=== PATIENT | male | born 1950 | race Caucasian/White ===

== ENCOUNTER 2023-10-20 12:44 | Outpatient (CLI) | payer MEDICARE, SELFPAY ==
--- NOTE | 2023-10-20 | ECHO_ITS ---
Patient Info Name: Thomas Bailey Jr Age: 72 years : 1950 Gender: Male Ht: 67 in Wt: 194 lbs BSA: 2.07 m2 HR: 71 bpm BP: 132 / 76 mmHg Technical Quality: Good Exam Date: 10/20/2023 1:08 PM Exam Location: Echo Lab Patient Status: Outpatient Admit Date: 10/20/2023 Staff Ordering Physician: AdamWild MD Web Applications Developer: Badnar Sigala RDCS Attending Provider: JamilWild MD Exam Type: CA echo doppler color flow Study Info Indications - HTN Complete two-dimensional, color flow and Doppler transthoracic echocardiogram is performed. Summary 1. Complete two-dimensional, color flow and Doppler transthoracic echocardiogram is performed. 2. Left ventricular chamber dimension is normal. 3. Left ventricular systolic function is normal, estimated at 65-70%. 4. There is mild concentric increased left ventricular wall thickness. 5. The left ventricular diastolic function is grade I diastolic dysfunction. 6. E/e' 10 is mildly elevated. 7. There is moderate aortic valve sclerosis. 8. There is mild aortic valve stenosis with a peak velocity of 245 cm/s, mean gradient of 14 mmHg, and aortic valve area of 1.6 cm2. 9. There is trace mitral valve regurgitation. 10. There is trace tricuspid valve regurgitation. 11. No pulmonary hypertension, estimated pulmonary arterial systolic pressure is 31 mmHg. Left Ventricle E/e' 10 is mildly elevated. Left ventricular chamber dimension is normal. Left ventricular systolic function is normal, estimated at 65-70%. There is mild concentric increased left ventricular wall thickness. The left ventricular diastolic function is grade I diastolic dysfunction. Right Ventricle Right ventricular systolic function is normal and with normal TAPSE 2.1 cm. Right ventricular chamber dimension is normal. Left Atria Left atrial chamber dimension is normal. Right Atria Right atrial chamber dimension is normal. Aortic Valve The aortic valve is trileaflet. There is moderate aortic valve sclerosis. There is mild aortic valve stenosis with a peak velocity of 245 cm/s, mean gradient of 14 mmHg, and aortic valve area of 1.6 cm2. There is no aortic valve regurgitation. Pulmonic Valve There is no pulmonic regurgitation. Mitral Valve There is no mitral valve stenosis. There is trace mitral valve regurgitation. Tricuspid Valve There is trace tricuspid valve regurgitation. No pulmonary hypertension, estimated pulmonary arterial systolic pressure is 31 mmHg. Pericardium/Pleural There is no pericardial effusion. Inferior Vena Cava Normal inferior vena cava with >50% collapse upon inspiration consistent with normal right atrial pressure, 5 mmHg. Aorta The aortic root size at the sinus of Valsalva is normal. Left Ventricular Outflow Tract Name Value Normal LVOT 2D LVOT Diameter 2.1 cm LVOT Doppler LVOT Peak Gradient 5 mmHg LVOT Mean Gradient 3 mmHg LVOT VTI 25 cm LVOT VTI/AV VTI Ratio 0.5 LVOT Stroke Volume 84 ml LVOT CO 5.8 l/min LVOT CI 2.8 l/min/m2 P
== END 2023-10-20 12:45 | disposition home or self-care (01) ==
LOC: ANHCARD 12:46
PROVIDERS: PCP Internal Medicine; Visit Provider Internal Medicine
DX: I10 Essential (primary) hypertension (principal); I35.1 Nonrheumatic aortic (valve) insufficiency
CPT/HCPCS: 93306

== ENCOUNTER 2024-01-19 07:00 | Outpatient (NON) | payer MEDICARE, SELFPAY | END 2024-01-19 07:01 | disposition home or self-care (01) | LOC: ANHLAB 01-20 07:37 | PROVIDERS: PCP Internal Medicine; Visit Provider Internal Medicine Gastroenterology | DX: Z12.11 Encounter for screening for malignant neoplasm of colon (principal) | CPT/HCPCS: 88305 ==

== ENCOUNTER 2024-01-19 10:31 | Day surgery (SDC) | payer MEDICARE, SELFPAY ==
[2023-12-27 07:46] VITALS: BMI 30.4
--- NOTE | 2024-01-19 06:59 | P.PNAN_ITS ---
Anes - Initial Pre Proc Eval Procedure: Operation Date: 01/19/24 12:45 Proposed Procedures p Diagnostic Colonoscopy - Luis Mccarthy MD Date/Time: 01/19/24 06:59 Surgeon: Luis Mccarthy MD Pre Op Diagnosis: History of Colon Polyps Patient Data Age: 73 Gender: M Height: 17.37 m Weight: 86 kg Allergies Allergy/AdvReac Type Severity Reaction Status Date / Time No Known Allergies Allergy Verified 01/19/24 11:22 Home Medications Medication Instructions Recorded Confirmed Type multivit with minerals-iron 18 1 tablet PO DAILY 01/10/24 01/19/24 History mg-folic ac 400 mcg-vit K 25 mcg tablet (Adults Multivitamin) Patient hx anesthesia problems: none Family hx anesthesia problems: none Results Review: All pre-operative results and documents have been reviewed as part of the pre- operative evaluation. [facility] Social History Social History Years smoked: 20 Smoking status: Former smoker Tobacco type: cigars Alcohol intake: current Drinks per week: 6 Alcohol use details: beer Substance use: former Substance use type: marijuana Other substance usage details: as a young adult Living arrangements: with family Spiritual care concerns: No Anes - Eval Final PreProcedure Day of Procedure 01/19/24 06:59 Patient weight: normal Heart: regular rate and rhythm Lungs: clear to auscultation and normal air movement Airway: Mallampati scale class II Neurological: alert and oriented Last oral intake: >/= 8 hours ASA classification: II Emergent: no Anesthetic plan: proceed Anesthesia type and monitoring: general GIVS and standard monitoring Results Review: All pre-operative results and documents have been reviewed as part of the pre- operative evaluation. Informed Consent: The patient's anesthetic plan and its attendant risks and benefits were discussed with the patient/family/POA. Questions were solicited and answers provided to the satisfaction of the patient/family/POA.
[2024-01-19 11:23] VITALS: BP 150/90; PULSE 73; RESP 18; TEMP 37.2; O2SAT 97
[2024-01-19] MEDS: LACTATED RINGERS 1,000 ML 150 ML IV CONT (11:28)
--- NOTE | 2024-01-19 12:03 | P.HP_ITS ---
History of Present Illness History of Present Illness Consent: Risks, benefits, and alternatives have been discussed and questions answered. Patient agrees to proceed with procedure. Chief complaint: History of Colon Polyps Narrative: Thomas Bailey Jr. is a 73 year old male presents for screening colonoscopy. Patient's current weight appetite and bowel movements are normal. Patient denies abdominal pain. He has had no bleeding. Family history is noncont ributory. Patient reports previous colonoscopy 15 years ago revealed a small polyp.m He was told this was ?nothing to worry about?. This was performed at a different institution and histology not available for review. Review of Systems Review of Systems: All systems reviewed & are unremarkable except as noted in HPI and below PMFSH Social History Social History Years smoked: 20 Smoking status: Former smoker Tobacco type: cigars Alcohol intake: current Drinks per week: 6 Alcohol use details: beer Substance use: former Substance use type: marijuana Other substance usage details: as a young adult Living arrangements: with family Spiritual care concerns: No Meds Home Medications and Allergies Home Medications Medication Instructions Recorded Confirmed Type multivit with minerals-iron 18 1 tablet PO DAILY 01/10/24 01/19/24 History mg-folic ac 400 mcg-vit K 25 mcg tablet (Adults Multivitamin) Allergies Allergy/AdvReac Type Severity Reaction Status Date / Time No Known Allergies Allergy Verified 01/19/24 11:22 Vital Signs Vital Signs - 24 hr 01/19/24 11:23 Temperature 98.9 F Pulse Rate 73 Respiratory Rate 18 Blood Pressure 150/90 H Pulse Oximetry 97 Oxygen Delivery Room Air Exam Narrative: Physical exam reveals patient to be alert. Vital signs stable. HEENT exam is unremarkable. Patient is anicteric. Lungs are clear to auscultation and is without murmur or extra sounds. Abdomen bowel sounds are present soft nontender with no organomegaly. Digital external rectal exam normal. Assessment and Plan Assessment and plan (1) Screen for colon cancer: Code(s): Z12.11 - Encounter for screening for malignant neoplasm of colon Status: Acute Assessment and Plan: Patient presents today for neoplasia screening colonoscopy. He does report a distant history of a small polyp many years ago. Further recommendations may be given after endoscopy
[2024-01-19 13:16] VITALS: BP 155/85; PULSE 64; RESP 16; O2SAT 96
[2024-01-19 13:26] VITALS: BP 129/82; PULSE 65; RESP 18; O2SAT 100
[2024-01-19 13:36] VITALS: BP 163/79; PULSE 70; RESP 18; O2SAT 99
--- NOTE | 2024-01-19 13:48 | WPDANESPN ---
Anes - Prog Note Post-Op Date/Time: 01/19/24 13:48 Cardiovascular status: normal Respiratory status: normal Airway patency: baseline Mental status: baseline Post-Op hydration status: normal Vital Signs: Last Vital Signs Temp 37.2 C 01/19/24 11:23 Pulse 70 01/19/24 13:36 Resp 18 01/19/24 13:36 BP 163/79 H 01/19/24 13:36 Pulse Ox 99 01/19/24 13:36 O2 Del Method Room Air 01/19/24 13:36 Pain Score (VAS): 0 I/O: Intake & Output 01/18/24 01/19/24 01/19/24 23:59 07:59 15:59 Intake Total 650 Balance 650 Post-procedural complaints: none Patient Feedback: Patient satisfied with anesthetic care. Other Findings: Patient vital signs back to baseline. Patient denies nausea and vomiting. Patient's pain under control. Patient OK for discharge.
== END 2024-01-19 13:43 | disposition home or self-care (01) ==
PROVIDERS: PCP Internal Medicine; Visit Provider Internal Medicine Gastroenterology
PROC: 0DJD8ZZ Inspection of Lower Intestinal Tract, Via Natural or Artificial Opening Endoscopic (ICD-10-PCS; CPT 45378; principal; 2024-01-19 12:45)
DX: Z86.0100 Personal history of colon polyps, unspecified (principal); D12.3 Benign neoplasm of transverse colon; K64.8 Other hemorrhoids; Z12.11 Encounter for screening for malignant neoplasm of colon
CPT/HCPCS: 45385

== ENCOUNTER 2024-10-10 14:47 | Outpatient (CLI) | payer MEDICARE, SELFPAY ==
--- NOTE | 2024-10-10 | ECHO_ITS ---
Patient Info Name: Thomas Bailey Age: 73 years : 1950 Gender: Male Ht: 67 in Wt: 190 lbs BSA: 2.04 m2 HR: 65 bpm BP: 161 / 91 mmHg Technical Quality: Good Exam Date: 10/10/2024 3:10 PM Patient Status: O Admit Date: 10/10/2024 Exam Type: CA echo doppler color flow Complete two-dimensional, color flow and Doppler transthoracic echocardiogram is performed. Orthopedic Nurse Practitioner: Edith Bailey Attending Provider: Wild Medina Summary 1. Complete two-dimensional, color flow and Doppler transthoracic echocardiogram is performed. 2. The left ventricle is normal in size and systolic function. The left ventricular ejection fraction is visually estimated to be 60-65%. There are no regional wall motion abnormalities. 3. The right ventricle is normal in size and systolic function. 4. The aortic valve is likely trileaflet and calcified. There is mild aortic stenosis. There is no aortic regurgitation. Left Ventricle The left ventricle is normal in size and systolic function. The left ventricular ejection fraction is visually estimated to be 60-65%. There are no regional wall motion abnormalities. Right Ventricle The right ventricle is normal in size and systolic function. Left Atria The left atrium is normal size. Right Atria The right atrium is normal size. Atrial Septum The atrial septum is normal. Aortic Valve The aortic valve is likely trileaflet and calcified. There is mild aortic stenosis. There is no aortic regurgitation. Pulmonic Valve The pulmonic valve is grossly normal. There is no pulmonic valve regurgitation. Mitral Valve The mitral valve leaflets are sclerotic. There is no mitral stenosis. There is no mitral regurgitation. Tricuspid Valve The tricuspid valve is normal. There is mild tricuspid regurgitation. Pericardium/Pleural Pericardium is normal in appearance with no evidence for significant pericardial effusion. Inferior Vena Cava Normal inferior vena cava with >50% collapse upon inspiration consistent with normal right atrial pressure, 3 mmHg. Aorta The aortic root at the level of the sinus of Valsalva measures 3.1 cm in diameter. Left Ventricular Outflow Tract Name Value Normal LVOT 2D LVOT Diameter 2.0 cm LVOT Doppler LVOT Peak Velocity 112 cm/s LVOT Peak Gradient 4 mmHg LVOT Mean Gradient 2 mmHg LVOT VTI 29 cm LVOT VTI/AV VTI Ratio 0.5 LVOT Stroke Volume 89 ml LVOT CO 4.8 l/min LVOT CI 2.3 l/min/m2 Pulmonic Valve Name Value Normal RVOT Doppler RVOT Peak Velocity 77 cm/s RVOT Peak Gradient 2 mmHg PV Doppler PV Peak Velocity 114 cm/s PV Peak Gradient 5 mmHg Mitral Valve Name Value Normal MV Diastolic Function MV E Peak Velocity 94 cm/s MV A Peak Velocity 81 cm/s MV E/A 1.2 MV Decel Time (PW) 220 ms MV Annular TDI MV E/e' (Septal) 11.6 MV E/e' (Lateral) 8.0 MV E/e' (Average) 9.8 Tricuspid Valve Name Value Normal TV Regurgitation Doppler TR Peak Velocity 319 cm/s TR Peak Gradient 41 mmHg Estimated PAP/RSVP RA Pressure 3 mmHg <=5 PA Systolic Pressure 44 mmHg <36 RV Systolic Pressure 44 mmHg <36 Aortic Valve Name Value Normal AV 2D/MM AV Area (Planimetry) 1.3 cm2 AV Doppler AV Peak Velocity 239 cm/s AV Peak Gradient 22 mmHg AV Mean Gradient 13 mmHg AV VTI 58 cm AV Area (Cont Eq VTI) 1.5 cm2 >=3.0 AV Area (Cont Eq Kareem) 1.4 cm2 AV DI (Kareem) 0.47 AV Regurgitation 2D LVOT Area 3.1 cm2 Ventricles Name Value Normal LV Dimensions 2D/MM IVS Diastolic Thickness (2D) 1.1 cm 0.6-1.0 LVID Diastole (2D) 4.9 cm 4.2-5.8 LVIW Diastolic Thickness (2D) 1.0 cm 0.6-1.0 LVID Systole (2D) 3.0 cm 2.5-4.0 LVOT Diameter 2.0 cm LV Mass (2D Cubed) 194.51 g 88.00-224.00 LV Mass Index (2D Cubed) 95 g/m2 49-115 Relative Wall Thickness (2D) 0.42 <=0.42 LV Fractional Shortening/Ejection Fraction 2D/MM LV Fractional Shortening (2D) 39 % 25-43 LV EF (2D Teichholz) 69 % LV EF (BP MOD) 59 % 52-72 Atria Name Value Normal LA Dimensions LA Volume (4C A-L) 52 ml LA Volume (BP A-L) 51 ml RA Dimensions RA Systolic Major [place] Length (4C) 5.6 cm 2.1-2.7 RA Area (4C) 14.6 cm2 <=18.0 EchoPAC Name Value Normal AutoEF LVCO_BiP_Q (Flzg8AUG) 4.8 l/min LVEF_BiP_Q (Wyzp1RWC) 59 % LVSV_BiP_Q (Pthp6ROX) 75 ml LVVED_BiP_Q (Axmx9HAK) 127 ml LVVES_BiP_Q (Smrk7SLG) 53 ml HR_4Ch_Q (Stbk3SVL) 64 bpm LVCO_4Ch_Q (Aabr5INC) 5.0 l/min LVEF_4Ch_Q (Vrjr0PPF) 59 % LVLd_4Ch_Q (Dvty2IFX) 9.2 cm LVLs_4Ch_Q (Uxhg7UOU) 7.6 cm LVSV_4Ch_Q (Tbdk2CJK) 78 ml LVVED_4Ch_Q (Ikui0FMA) 132 ml LVVES_4Ch_Q (Kefv7HIX) 54 ml HR_2Ch_Q (Fkcq9QPW) 64 bpm LVCO_2Ch_Q (Pagv6THW) 4.6 l/min LVEF_2Ch_Q (Vepu8OJF) 59 % LVLd_2Ch_Q (Djsu2NET) 9.4 cm LVLs_2Ch_Q (Jznz0LBM) 7.7 cm LVSV_2Ch_Q (Axbl0NLD) 72 ml LVVED_2Ch_Q (Fwdy5PGM) 123 ml LVVES_2Ch_Q (Hknb3QTQ) 51 ml Report Signatures
--- OUTSIDE RECORDS SUMMARY | 2024-10-10 14:50 | XMS_ITS | Data Portability ---
Author Organization [place] - [facility] [employer], Main Office Address [address] [place] [address] Assessment Encounter Date Assessment Date Assessment LastModified by Organization Details LastModified Time 03/03/2023 03/03/2023 Continue current therapy blood work to include testosterone 6 month follow-up. [email or web address] Not available 03/05/2023 19:33:54 05/23/2024 05/23/2024 This note is dictated and transcribed by [employer]. Bridge Painter Helper variances may occur. Despite proofreading, typographical errors may occur. Occasional wrong-word or 'dhmuq-c-evwu' substitutions may have occurred due to the inherent limitations of voice recording. Read the chart carefully and recognize, using context, where substitutions have occurred. Not available 05/23/2024 11:28:59 06/21/2024 06/21/2024 This note is dictated and transcribed by [employer]. Bridge Painter Helper variances may occur. Despite proofreading, typographical errors may occur. Occasional wrong-word or 'xemgn-p-rhdo' substitutions may have occurred due to the inherent limitations of voice recording. Read the chart carefully and recognize, using context, where substitutions have occurred. Not available 06/21/2024 13:52:08 07/13/2024 07/13/2024 This note is dictated and transcribed by [employer]. Bridge Painter Helper variances may occur. Despite proofreading, typographical errors may occur. Occasional wrong-word or 'gwacc-z-bxyt' substitutions may have occurred due to the inherent limitations of voice recording. Read the chart carefully and recognize, using context, where substitutions have occurred. Not available 07/13/2024 16:53:21 09/05/2024 09/05/2024 This note is dictated and transcribed by [employer]. Bridge Painter Helper variances may occur. Despite proofreading, typographical errors may occur. Occasional wrong-word or 'ujxvd-u-rjtc' substitutions may have occurred due to the inherent limitations of voice recording. Read the chart carefully and recognize, using context, where substitutions have occurred. Not available 09/05/2024 16:17:15 Plan of Treatment Reminders Order Date Submit Date Provider Last Modified By Organization Details Last Modified Time Details Appointments None recorded. Lab lipid panel, serum 2022 023 [facility] (Lab), [address] [place], [address], 3 12:58:39 TSH, serum or plasma 2022 023 [facility] (Lab), [address] [place], [address], 3 13:53:36 T4, free, serum 2022 023 [facility] (Lab), [address] [place], [address], 13:06:55 T3, free, serum or plasma 2022 023 [facility] (Lab), [address] [place], [address], 3 13:59:11 CBC 2022 023 [facility] (Lab), [address] [place], [address], 3 13:08:26 testosteron e, free + total, serum 2022 023 [facility] (Lab), [address] [place], [address], 3 14:11:37 CMP, serum or plasma 2022 023 [facility] (Lab), [address] [place], [address], 12:57:58 Referral None recorded. Procedures None recorded. Surgeries None recorded. Imaging None recorded. Medication Orders ketoconazol e 2 % topical cream 2024 025 [id number], [address], [place], [address], 16:18:27 Patient TargetsNo targets recorded. Patient InstructionsNo instructions recorded. Reason for Referral None Reported. Results Created Date Observation Date Name Description Value Unit Range Abnormal Flag Note LastModifiedBy Organization Detail LastModifiedTime 03/08/2003/08/2023 COMPR EHENS MARY METAB OLIC PANEL sodium 138 mmol/ L 137-14 5 Not Available [facility] (Lab) [address] [place], [address], 03/08/2023 12:57:58 03/08/2003/08/2023 COMPR EHENS MARY METAB OLIC PANEL potassium 4.2 mmol/ L 3.5-5. 1 Not Available [facility] (Lab) [address] [place], [address], 03/08/2023 12:57:58 03/08/20 23 03/08/2023 COMPR EHENS MARY METAB OLIC PANEL chloride 104 mmol/ L 98-107 Not Available [facility] (Lab) [address] [place], [address], 03/08/2023 12:57:58 03/08/20 23 03/08/2023 COMPR EHENS MARY METAB OLIC PANEL carbon dioxide 28 mmol/ L 22-30 Not Available [facility] (Lab) [address] [place], [address], 03/08/2023 12:57:58 03/08/20 23 03/08/2023 COMPR EHENS MARY METAB OLIC PANEL anion gap 10.2 mmol/ L 14-22 low Not Available [facility] (Lab) [address] [place], [address], 03/08/2023 12:57:58 03/08/20 23 03/08/2023 COMPR EHENS MARY METAB OLIC PANEL glucose 103 mg/dL 70-99 high Not Available [facility] (Lab) [address] [place], [address], 03/08/2023 12:57:58 03/08/20 23 03/08/2023 COMPR EHENS MARY METAB OLIC PANEL BUN 20 mg/dL 8-19 high Not Available [facility] (Lab) [address] [place], [address], 03/08/2023 12:57:58 03/08/20 23 03/08/2023 COMPR EHENS MARY METAB OLIC PANEL creatinine 0.93 mg/dL 0.66-1 .25 Not Available [facility] (Lab) [address] [place], [address], 03/08/2023 12:57:58 03/08/2003/08/2023 COMPR EHENS MARY METAB OLIC PANEL GFR >60 Refer ence Range : [place] ge GFR Healt hy Adult : >60 mL/mi n/1.7 3 m2 Chron ic Kidne y Disea se: 15-60 mL/mi n/1.7 3 m2 Kidne y Failu re: <15/m L/min /1.73 m2 www.n iddk. nih.g ov The MDRD study equat ion has not been valid ated in child allegra <18 years of age; pregn ant women ; the elder ly >85 years of age; or in some racia l or ethni c subgr oups, such as Hispa nics. Outsi de the valid ated sonia eters , estim ated GFR is less accur ate, requi ring clini meg judgm ent on a case- by-ca se basis . Clini meg inter preta tion for other races and ages must be made by the clini angle. The MDRD study equat ion has not been valid ated for the evalu ation of serum creat inine relat ed to nutri moraima l statu s or medic ation usage . For perso ns <18 years of age, a pedia tric GFR calcu lator is avail able on the [facility] websi te: https ://ww w.kid nolvia.o rg/pr ofess ional s/kdo qi/gf r_cal culat or Not Available [facility] (Lab) [address] [place], [address], 03/08/2023 12:57:58 03/08/2003/08/2023 COMPR EHENS MARY METAB OLIC PANEL alkaline phosphatase 66 U/L 38-126 Not Available [facility] (Lab) [address] [place], [address], 03/08/2023 12:57:58 03/08/2003/08/2023 COMPR EHENS MARY METAB OLIC PANEL alanine aminotransfe rase 16 U/L 0-50 Not Available [facility] (Lab) [address] [place], [address], 03/08/2023 12:57:58 03/08/20 23 03/08/2023 COMPR EHENS MARY METAB OLIC PANEL aspartate aminotransfe rase 23 U/L 15-46 Not Available [facility] (Lab) [address] [place], [address], 03/08/2023 12:57:58 03/08/20 23 03/08/2023 COMPR EHENS MARY METAB OLIC PANEL bilirubin, total 0.60 mg/dL 0.20-1 .30 Not Available [facility] (Lab) [address] [place], [address], 03/08/2023 12:57:58 03/08/20 23 03/08/2023 COMPR EHENS MARY METAB OLIC PANEL calcium 9.3 mg/dL 8.4-10 .2 Not Available [facility] (Lab) [address] [place], [address], 03/08/2023 12:57:58 03/08/2003/08/2023 COMPR EHENS MARY METAB OLIC PANEL total protein 7.6 g/dL 6.3-8. 2 Not Available [facility] (Lab) [address] [place], [address], 03/08/2023 12:57:58 03/08/20 23 03/08/2023 COMPR EHENS MARY METAB OLIC PANEL albumin 4.0 g/dL 3.0-4. 4 Not Available [facility] (Lab) [address] [place], [address], 03/08/2023 12:57:58 03/08/20 23 03/08/2023 COMPR EHENS MARY METAB OLIC PANEL globulin 3.6 g/dL 2.6-4. 2 Not Available [facility] (Lab) [address] [place], [address], 03/08/2023 12:57:58 03/08/2003/08/2023 COMPR EHENS MARY METAB OLIC PANEL A/G ratio 1.1 ratio 1.0-2. 0 Not Available [facility] (Lab) [address] [place], [address], 03/08/2023 12:57:58 03/08/2003/08/2023 LIPID PANEL cholesterol 171 mg/dL 140-19 9 NIH SOM NSUS RECOM MENDA TION FOR LENI STERO L: ADULT CHILD LOW RISK: <200 <170 BORDE RLINE : <200- 239 ----- HIGH RISK: >240 >200 Not Available [facility] (Lab) [address] [place], [address], 03/08/2023 12:58:39 03/08/2003/08/2023 LIPID PANEL triglyceride s 214 mg/dL 0-150 high NIH SOM NSUS REPOR T RECOM MENDA TION FOR TRIGL YCERI LEANNE: ADULT CHILD LOW RISK: <150 ----- BODER LINE: 150-1 99 ----- HIGH RISK: >200 ----- Not Available [facility] (Lab) [address] [place], [address], 03/08/2023 12:58:39 03/08/20 23 03/08/2023 LIPID PANEL HDL cholesterol 22 mg/dL 40- low Not Available [facility] (Lab) [address] [place], [address], 03/08/2023 12:58:39 03/08/2003/08/2023 LIPID PANEL LDL cholesterol, calculated 106 mg/dL 0-130 NIH SOM NSUS REPOR T RECOM MENDA TIONS FOR LDL: ADULT CHILD LOW RISK <130 <110 (OPTI MAL LDL) <100 ----- AWA RLINE : 130-1 59 ----- HIGH RISK: >160 >130 A TRIGL YCERI DE RESUL T >400 INVAL IDATE S THE CALCU LATIO N FOR LDL FRACT IONAT ION - THE LDL RESUL T WILL NOT BE REPOR ENA. Not Available [facility] (Lab) [address] [place], [address], 03/08/2023 12:58:39 03/08/2003/08/2023 T4 FREE free T4 0.98 NG/dL 0.78-2 .19 Not Available [facility] (Lab) [address] [place], [address], 03/08/2023 13:06:55 03/08/2003/08/2023 CBC W/O DIFFE WILVER AL white blood cells 5.4 x10'3 /uL 4.2-10 .8 Not Available [facility] (Lab) [address] [place], [address], 03/08/2023 13:08:26 03/08/20 23 03/08/2023 CBC W/O DIFFE RENTI AL red blood cells 4.58 x10'6 /uL 4.10-5 .80 Not Available [facility] (Lab) [address] [place], [address], 03/08/2023 13:08:26 03/08/20 23 03/08/2023 CBC W/O DIFFE RENTI AL hemoglobin 14.7 g/dL 13.2-1 7.0 Not Available [facility] (Lab) [address] [place], [address], 03/08/2023 13:08:26 03/08/20 23 03/08/2023 CBC W/O DIFFE RENTI AL hematocrit 45.2 % 39.3-5 0.0 Not Available [facility] (Lab) [address] [place], [address], 03/08/2023 13:08:26 03/08/20 23 03/08/2023 CBC W/O DIFFE RENTI AL mean red cell volume 98.7 fL 80.0-9 7.0 high Not Available [facility] (Lab) [address] [place], [address], 03/08/2023 13:08:26 03/08/20 23 03/08/2023 CBC W/O DIFFE RENTI AL mean red cell hemoglobin 32.1 pg 27.0-3 3.0 Not Available [facility] (Lab) [address] [place], [address], 03/08/2023 13:08:26 03/08/20 23 03/08/2023 CBC W/O DIFFE RENTI AL mean RBC HGB concentratio n 32.5 g/dL 31.0-3 6.0 Not Available [facility] (Lab) [address] [place], [address], 03/08/2023 13:08:26 03/08/20 23 03/08/2023 CBC W/O DIFFE RENTI AL red cell distribution width 12.8 % 11.8-1 5.5 Not Available [facility] (Lab) [address] [place], [address], 03/08/2023 13:08:26 03/08/20 23 03/08/2023 CBC W/O DIFFE RENTI AL platelets 201 x10'3 /uL 150-40 0 Not Available [facility] (Lab) [address] [place], [address], 03/08/2023 13:08:26 03/08/20 23 03/08/2023 CBC W/O DIFFE RENTI AL mean platelet volume 11.7 fL 9.0-12 .4 Not Available [facility] (Lab) [address] [place], [address], 03/08/2023 13:08:26 03/08/20 23 03/08/2023 TSH thyroid-stim ulating hormone 3.400 uIU/m L 0.465- 4.680 Not Available [facility] (Lab) [address] [place] [address], [address], 03/08/2023 13:53:36 03/08/20 23 03/08/2023 T3 FREE free T3 3.8 pg/mL 2.77-5 .27 Not Available [facility] (Lab) [address] [place], [address], 03/08/2023 13:59:11 03/08/20 23 03/16/2023 TESTO STERO NE, FREE+ TOTAL LC/MS testosterone , total, lc/MS 332.1 NG/dL 264.0- 916.0 This LabCo rp LC/MS -MS metho d is curre ntly certi fied by the CDC Hormo ne Stand ardiz ation Progr am (HoSt ). Adult male refer ence inter tolu is based on a popul ation of healt hy nonob dain males (BMI <30) betwe en 19 and 39 years old. Glen zabala, et.al . JCEM 2017, 102;1 161-1 173. PMID: 76433 103. Not Available [facility] (Lab) [address] [place], [address], 03/16/2023 14:11:37 03/08/20 23 03/16/2023 TESTO STERO NE, FREE+ TOTAL LC/MS testosterone , free 6.64 NG/dL 5.00-2 1.00 Not Available [facility] (Lab) [address] [place], [address], 03/16/2023 14:11:37 03/08/2003/16/2023 TESTO STERO NE, FREE+ TOTAL LC/MS % free testosterone 2.00 % 1.50-4 .20 [facility] [place] [address] [facility] [place] [address] Lab Direc tor: Sonia thorpe MD, Phone : [phone] Not Available [facility] (Lab) [address] [place], [address], 03/16/2023 14:11:37 Result Notes None recorded. Problems Name Problem SNOMED Code Status Onset Date Resolution Date Notes Provider Name and Address Organization Details Recorded Time Gastroesop hageal reflux disease 285748239 Active Not Available [facility] 3 21:51:24 Hand pain 62955253 Active 2013 Not Available [facility] 3 21:51:24 Palpitatio ns 77441776 Active 2017 Not Available [facility] 3 21:51:24 Skin lesion 99770888 Active 2021 Not Available [facility] 3 21:51:24 Fatigue 11946820 Active 2022 Not Available [facility] 3 21:51:24 Pain of toe of right foot 9384528203343 01 Active 2024 Bandar Smith DPM [address] [facility] [address], [place], [address] , Contrib 11:29:27 Ingrowing toenail 515168045 Active 2024 Bandar Smith DPM [address], [place], [address] , Contrib 11:29:47 Onychomyco sis of toenails 802141426 Active 2024 Bandar Smith DPM [address], [place], [address] , Contrib 13:52:13 Problem Notes None recorded. Procedures Surgical History Date Name Laterality Status Provider Name and Address Organization Details Recorded Time 07/14/19 Toenail avulsion completed Bandar Smith DPM [address], [place], [address], Contrib 07/13/2024 16:52:32 05/23/19 Nail Debridement completed Bandar Smith DPM [address], [place], [address], Contrib 05/23/2024 11:28:55 Foot Surgery completed Not Available [facility] 05/27/2022 14:56:01 Imaging Results None recorded. Procedure Notes None recorded. Medical Equipment None Reported. Allergies No known drug allergies Medications Name Sig Start Date Stop Date Status Note LastModified by Organization Details LastModified Time lisinopril 20 mg-hydrochl orothiazide 12.5 mg tablet TAKE 1 TABLET BY MOUTH EVERY DAY 05/23 completed Not Available Not Available Not Available amoxicillin 500 mg tablet TAKE 1 TABLET BY MOUTH THREE TIMES A DAY FOR 7 DAYS 05/23 completed Not Available Not Available Not Available ofloxacin 0.3 % ear drops INSTILL 10 DROPS INTO AFFECTED EAR(S) BY OTIC ROUTE ONCE DAILY 05/23 completed Not Available Not Available Not Available ketoconazol e 2 % topical cream APPLY TO THE AFFECTED AREA(S) ON RIGHT GREAT TOENAIL ONCE DAILY active Not Available Not Available No t Available Glucosamine 07/26 completed Not Available Not Available Not Available [employer] 2017 active Not Available Not Available Not Avai lable Vitals Date Recorded Body temperature Respiratory rate Heart rate Oxygen saturation Oxygen saturation in Arterial blood by Pulse oximetry Systolic And Diastolic Provider Name and Address Organization Details Last Updated DateTime 5 98.7 [degF] 18 /min 70 /min 96 % 96 % 147/100 mm[Hg] Liz Rbui RN [facility] [employer] [facility] 5 10:56:49 Date Recorded Body temperature Respiratory rate Heart rate Oxygen saturation Oxygen saturation in Arterial blood by Pulse oximetry Systolic And Diastolic Provider Name and Address Organization Details Last Updated DateTime 5 98.2 [degF] 16 /min 67 /min 98 % 98 % 154/87 mm[Hg] Kalyn Carlitos [facility] [employer] [facility] 5 12:51:53 Date Recorded Body height Body mass index (BMI) Body weight Provider Name and Address Organization Details Last Updated DateTime 07/13/2024 170.18 cm 31.6 kg/m2 92103.66 g Veronica Sal [facility] [employer] [facility] 07/13/2024 16:32:56 Date Recorded Body height Body mass index (BMI) Body weight Body temperature Heart rate Oxygen saturation Oxygen saturation in Arterial blood by Pulse oximetry Systolic And Diastolic Provider Name and Address Organization Details Last Updated DateTime 5 170.18 cm 31.6 kg/m2 06301.6 6 g 97.9 [degF] 80 /min 97 % 97 % 143/70 mm[Hg] Quan Gibbs [facility] [employer] [facility] 5 15:27:50 Date Recorded Body height Body mass index (BMI) Body weight Body temperature Heart rate Systolic And Diastolic Provider Name and Address Organization Details Last Updated DateTime 3 170.18 cm 31.6 kg/m2 11701.6 6 g 97.6 [degF] 62 /min 122/86 mm[Hg] Kathy Watts Matteo [facility] [employer] [facility] 3 12:00:11 Social History Question Answer Notes LastModified by Organizat ion Details LastModified Time Tobacco Smoking Status Former Smoker Not Available [facility] 05/27/2022 14:55:57 Do You Have An Advance Directive? No [id number] Information not available 05/27/2022 What Is Your Level Of Caffeine Consumption? Moderate MIGRATION.[id number] Information not available 05/27/2022 In The 14 Days Before Symptom Onset, Have You Had Close Contact With A Laboratory-confi rmed COVID-19 While That Case Was Ill? No [id number] Information not available 05/27/2022 In The 14 Days Before Symptom Onset, Have You Had Close Contact With A Person Who Is Under Investigation For COVID-19 While That Person Was Ill? No [id number] Information not available 05/27/2022 What Type Of Diet Are You Following? REGULAR MIGRATION.95504 05743 Information not available 05/27/2022 What Is The Highest Grade Or Level Of School You Have Completed Or The Highest Degree You Have Received? [id number] MIGRATION.59908 [id number] Information not available 05/27/2022 Have There Been Any Changes To Your Family Or Social Situation? No MIGRATION.69313 [id number] Information not available 05/27/2022 What Is The Fluoride Status Of Your Home? Unknown MIGRATION.[id number] [id number] Information not available 05/27/2022 When Did You Quit Smoking? 6-10yearssincelastc igarette MIGRATION.64885 13997 Information not available 05/27/2022 Where Do You Live? SingleLevelHouse MIGRATION.87430 10526 Information not available 05/27/2022 Do You Have A Medical Power Of Folding Machine Setter? No MIGRATION.87767 84543 Information not available 05/27/2022 What Was The Date Of Your Most Recent Tobacco Screening? 03/03/2023 [email or web address] Information not available 03/03/2023 Have You Ever Been Counseled For Unhealthy Alcohol Use? No MIGRATION.68023 85586 Information not available 05/27/2022 Do You Have Any Pets? No MIGRATION.67205 74793 Information not available 05/27/2022 What Is Your Relationship Status? MIGRATION.06801 68176 Information not available 05/27/2022 Do You Have Smoke And Carbon Monoxide Detectors In Your Home? Yes MIGRATION.20508 68115 Information not available 05/27/2022 Are You Passively Exposed To Smoke? Yes MIGRATION.70802 03075 Information not available 05/27/2022 Are There Any Smokers In Your House? Yes MIGRATION.49481 67277 Information not available 05/27/2022 Has Tobacco Cessation Counseling Been Provided? No MIGRATION.03078 17855 Information not available 05/27/2022 Have You Recently Traveled Abroad? No MIGRATION.29031 30318 Information not available 05/27/2022 Do You Have Any Dietary Restrictions? No MIGRATION.95781 83606 Information not available 05/27/2022 Sex: Male Functional Status Question Answer Note LastModified by [employer] Details LastModified Time Do you use any illicit or recreational drugs? No MIGRATION.[id number] 026 Information not available 05/27/2022 Do you or have you ever used any other forms of tobacco or nicotine? No MIGRATION.[id number] 026 Information not available 05/27/2022 What is your level of alcohol consumption? Occasional MIGRATION.[id number] 026 Information not available 05/27/2022 Are you currently employed? No [email or web address] Information not available 09/09/2022 What is your occupation? retired MIGRATION.[id number] 026 Information not available 05/27/2022 What is your exercise level? Moderate MIGRATION.[id number] 026 Information not available 05/27/2022 Mental Status Question Answer Note LastModified by [employer] Details LastModified Time Do you feel stressed (tense, restless, nervous, or anxious, or unable to sleep at night)? [id number] [id number] Information not available 05/27/2022 Family History Relationship Description Onset Age of this Age Resolved Age Notes LastModified by Organization Details LastModified Time Father Alzheimer's disease [id number] Not available 05/27/2022 14:56:02 Father Heart disease [id number] Not available 05/27/2022 14:56:02 Medical History Condition Response NERVE DISEASE N BLINDNESS N RHEUMATIC FEVER N KIDNEY STONES N BLADDER PROBLEMS N MRSA N OTHER # 1 N POLIO N LUNG DISEASE/DISORDER N HISTORY OF DRUG ABUSE N RADIATION / CHEMOTHERAPY N COPD N Other # 2 N BLOOD DISEASES N EAR OR HEARING PROBLEMS N MUMPS N SHINGLES N BOWEL PROBLEMS N DEPRESSION (INCLUDING POST ) N FAILED BACK SYNDROME N STROKE/TIA N ULCERS N BENIGN PROSTATIC HYPERPLASIA N MEASLES N HYPOTENSION N MYOCARDIAL INFARCTION N OBESITY N GERD/NAUSEA N ANEURYSM N URINARY/BLADDER/KIDNEY PROBLEMS N CORONARY ARTERY DISEASE (CAD) N Do you have Advance directive? N ADDICTION CONCERNS N ENDOMETRIOSIS N Impotence N USE OF BLOOD THINNERS N SKIN PROBLEMS N GASTROINTESTINAL DISORDER N PERIPHERAL VASCULAR DISEASE N MUSCLE,JOINT OR BONE PROBLEMS N GASTROINTESTINAL BLEEDING N BLOOD CLOTS N ASTHMA N Abdominal Pain N CATARACTS N ARTERIAL INSUFFICIENCY N ERECTILE DYSFUNCTION N VARICOSITIES N GI PROBLEMS N Low Testosterone N INFERTILITY N AIDS/HIV N CHEMOTHERAPY / RADIATION N LIVER DISEASE N MALE HYPOGONADISM N HYPERTENSION N Deficiency N TOURETTE'S N ANXIETY DISORDER N BLOOD TRANSFUSION N ANEMIA/BLOOD DISORDER N CHRONIC EAR INFECTIONS N TUBERCULOSIS N GLAUCOMA N FOOT PROBLEM N DIVERTICULITIS N CHICKENPOX N SLEEP APNEA N BACK INJECTIONS N ALLERGIES/HAYFEVER N INFECTIOUS DISEASE N HEART ARRHYTHMIA N PROSTATE N ESRD N INSOMNIA N HIGH CHOLESTEROL / HYPERLIPIDEMIA N HYPERTHYROIDISM N EYE PROBLEMS N PVD N EDEMA N CHRONIC PAIN SYNDROME N HYPOTHYROIDISM N CONSTIPATION N CAROTID BLOCKAGE N BACK / NECK PROBLEMS N HAVE YOU BEEN HOSPITALIZED OR SEEN IN [facility] ER IN THE PAST YEAR ? N ATHEROSCLEROSIS N BREAST PROBLEMS N DIALYSIS N POLYCYSTIC OVARIES N ECZEMA N OSTEOPOROSIS N ARTHRITIS N NO SIGNIFICANT PAST MEDICAL HISTORY N APPENDICITIS N DIABETES, TYPE N BAD TEETH N VON WILLIBRAND'S DISEASE N ENT N HEARTBURN / REFLUX N GI N AUTISM SPECTRUM DISORDER (ASD) N POST LAMINECTOMY SYNDROME N HEPATITIS / LIVER DISEASE N GOUT N SLEEP DISORDER N ALZHEIMER'S DISEASE N Brain Problems N HERPES N DEMENTIA N HEADACHES/MIGRAINES N SEIZURES/EPILEPSY N VASCULAR DISEASE N PACEMAKER N DIZZINESS N HEART DISEASE/HEART PROBLEMS N KIDNEY DISEASE N MULTIPLE SCLEROSIS N NEUROPSYCHOLOGICAL N CARDIAC ARRHYTHMIA N CANCER: SPECIFY N ATRIAL FIBRILLATION N Gall Stones N PULMONARY EMBOLISM N AUTOIMMUNE DISEASE N Immunizations Vaccine Type Date Status Note Provider Nam e and Address Organization Details Recorded Time COVID-19, mRNA, LNP-S, PF, 10 mcg/0.2 mL dose, villa-sucrose 07/02/2020 completed Not Available [facility] 023 21:51:24 COVID-19, mRNA, LNP-S, PF, 10 mcg/0.2 mL dose, villa-sucrose 06/10/2020 completed Not Available [facility] 023 21:51:24 Past Encounters Encounter ID Performer Location Encounter Start Date Encounter Closed Date Diagnosis/Indication Diagnosis SNOMED-CT Code Diagnosis ICD10 Code Diagnosis Note [id number] Wild Medina MD [facility] Internal Med [address] [address] 03/06/2022 00:00:00 04/12/2022 22:25:11 [id number] Wild Medina MD [facility] Internal Med [facility] [address] [address] 09/09/2022 10:32:50 09/09/2022 11:43:23 Screening for malignant neoplasm of colon 834915651 Z12.11 Gastroesop hageal reflux disease [id number] K21.9 [id number] Wild Medina MD [facility] Internal Med [facility] [address] [address] 03/03/2023 10:46:54 03/03/2023 12:19:05 Fatigue [id number] R53.83 Screening for cardiovascular system disease [id number] Z13.6 [id number] [facility] [address] [place] [address] 05/23/2024 10:27:23 05/23/2024 11:31:24 Pain of toe of right foot [id number] 35151 M79.674 right great toe secondary to ingrown without infection Ingrowing toenail [id number] L60.0 right great toenail- worse laterally but pain mediallyNa il debrided without incidentRe viewed treatment options in detailPati ent will return in 1 month and we will decide if the patient wants to pursue partial matrixecto my [id number] Bandar Smith DPM [facility] [address] [place] [address] 06/21/2024 12:12:53 06/21/2024 14:08:35 Ingrowing toenail [id number] L60.0 right great toenail- resolved but incurvated worse to the lateralNai l debrided without incidentRe viewed treatment options in detailpati ent will return for total nail matrixecto my Onychomyco sis of toenails [id number] B35.1 right great toenailwil l treat with ketoconazo le [id number] Bandar Smith DPM [facility] [address] [place] [address] 07/13/2024 16:20:19 07/13/2024 17:08:15 Onychomycosis of toenails [id number] B35.1 right great toenailcon sent signed total nail avulsion right great toenailpro cedure performed without incidentWo und care instructio ns reviewed with the patientMon itor for signs of infection if present seek medical attention immediatel ywill treat with ketoconazo le Once nail bed healedfoll ow-up 2 weeks [id number] Bandar Smith DPM [facility] [address] [facility] [address] [place] [address] 09/05/2024 15:18:46 09/07/2024 15:00:19 Onychomycosis of toenails [id number] B35.1 right great toenailTot al nail avulsion healed with new nail returning and normal in natureRx ketoconazo le- apply for 1 monthfollo w-up as needed Health Concerns Section Related Observation LastModified by Organization Detai ls LastModified Time None Recorded Concern Status LastModified by Organization Details LastModified Time None Recorded Advance Directives Directive N: Payers Insurance Date Sequence Insurance Name Policy Number Policy Bowman Covered Member ID Bowman Member ID Guarantor Name 09/02/2024 1 [employer] (MEDICARE REPLACEMENT/ ADVANTAGE - HMO) [id number] Thomas Bailey [id number] Thomas Bailey Notes Date Note Type Note Provider Name and Address Organization Details Recorded Time 03/03/2023 text/html Overall not doin g too bad little bit of fatigue from time to time late afternoon Wild Medina MD [address] [facility] [place], [address], [place], [address], [place] - S Patient [employer] [facility] 03/05/2023 19:34:15 05/23/2024 text/html Patient is a 73-year-old male who presents the office with complaints of ingrown toenail pain to the right great toe he states the medial corner is causing him discomfort. Patient states the left neuro corner is worse but is not problematic currently. Patient states he has had redness and drainage to the nail in the past but denies any recently. Patient denies any other complaints. Bandar Smith DPM [address], [place], [address], [employer] 05/23/2024 11:30:42 06/21/2024 text/html . Patient is a 73-year-old male who returns the office for follow-up on ingrown toenail of the right great toe he states the infection and everything has resolved he states that he continues to have pain and discoloration of the toenail I reviewed treatment options with the patient and due to his onychomycosis and nail incurvation he would like to pursue a total nail avulsion which I agree will help to resolve the onychomycosis and may improve the incurvation of the nail. Patient denies any other complaints. Bandar Smtih DPM [address], [address], [place], [address], [employer] 06/21/2024 13:53:05 07/13/2024 text/html . Patient is a 73-year-old male who returns to office for follow-up on onychomycosis of the right great toenail. Patient is here for total nail avulsion. Patient understands all risks, benefits, complications of planned procedures. Patient denies any other complaints. Bandar Smith DPM [address], [address], [place], [address], [employer] 07/13/2024 16:56:09 09/05/2024 text/html . Patient is a 73-year-old male who returns to the office for follow-up on total nail avulsion. Patient has a healing nail that is normal he denies any new complaints. Bandar Smith DPM [address], [address], [place], [address], [employer] 09/05/2024 16:18:29
--- OUTSIDE RECORDS SUMMARY | 2024-10-10 14:50 | XMS_ITS | Data Portability ---
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 Name Role Phone JACQUI MEDINA Primary Care Provider [phone] Assessment Encounter Date Assessment Date Assessment LastModified by Organization Details LastModified Time 10/05/2023 10/05/2023 we will d hold off on his medications at this time he will get recheck of bloopressure in 2 weeks in this office Not available 10/05/2023 21:03:32 11/03/2023 11/03/2023 we will continue to follow blood pressure no treatment at this time see me in 1 months he will do ambulatory monitoring [email or web address] Not available 11/28/2023 16:15:44 12/01/2023 12/01/2023 continue to monitor blood pressure conservatively see me back in 4 months [email or web address] Not available 12/04/2023 12:37:34 04/05/2024 04/05/2024 we will continue current therapy healthy lifestyle care instructions see me back in 4 months [email or web address] Not available 04/09/2024 21:23:21 08/30/2024 08/30/2024 EKG shows a normal sinus rhythm no acute changes. I would like to do some additional testing however he says everything seems right now he will do it if it comes back see me in 4 months and he has agreed that if symptoms recur he will call the office immediately [email or web address] Not available 09/30/2024 20:58:11 Plan of Treatment Reminders Order Date Submit Date Provider Last Modified By Organization Details Last Modified Time Details Appointments ANY 15 025 01:00PM Jacqui Medina MD Not available Not available Not available Lab None record ed. Referral None record ed. Procedures None record ed. Surgeries None record ed. Imaging None record ed. Medication Orders None record ed. Patient TargetsNo targets recorded. Patient Instructions Encounter Date Encounter Id Patient Instructions Last Modified By Organization Details Last Modified Time 11/03/2023 [id number] A healthy lifestyle: care instructions Not available 11/28/2023 16:16:04 04/05/2024 [id number] A healthy lifestyle: care instructions [email or web address] Not available 04/05/2024 14:05:59 08/30/2024 [id number] A healthy lifestyle: care instructions [email or web address] Not available 08/30/2024 17:22:19 Reason for Referral None Reported. Results Created Date Observation Date Name Description Value Unit Range Abnormal Flag Note LastModifiedBy Organization Detail LastModifiedTime 09/22/1909/23/2023 LIPID PANEL cholesterol, total 191 mg/dL 100-19 9 Not Available [facility] ([facility]) [address] [place], [address], 09/23/2023 13:12:03 09/22/19 24 09/23/2023 LIPID PANEL triglyceride s 105 mg/dL 0-149 Not Available [facility] ([facility]) [address] [place], [address], 09/23/2023 13:12:03 09/22/19 24 09/23/2023 LIPID PANEL HDL cholesterol 33 mg/dL >39 below low normal Not Available [facility] ([facility]) [address] [place], [address], 09/23/2023 13:12:03 09/22/19 24 09/23/2023 LIPID PANEL VLDL cholesterol meg 19 mg/dL 5-40 Not Available [facility] ([facility]) [address] [place], [address], 09/23/2023 13:12:03 09/22/19 24 09/23/2023 LIPID PANEL LDL chol calc ([facility]) 139 mg/dL 0-99 above high normal Not Available [facility] ([facility]) [address] [place], [address], 09/23/2023 13:12:03 09/22/19 24 09/23/2023 COMP. METAB OLIC PANEL (14) glucose - mg/dL Test not perfo rmed. Serum was in conta ct with cells when recei davin which will make the resul t inacc urate . Not Available [facility] ([facility]) [address] [place], [address], 09/23/2023 13:12:04 09/22/19 24 09/23/2023 COMP. METAB OLIC PANEL (14) BUN 20 mg/dL 8-27 Not Available [facility] ([facility]) [address] [place], [address], 09/23/2023 13:12:04 09/22/19 24 09/23/2023 COMP. METAB OLIC PANEL (14) creatinine 0.92 mg/dL 0.76-1 .27 Not Available [facility] ([facility]) [address] [place], [address], 09/23/2023 13:12:04 09/22/19 24 09/23/2023 COMP. METAB OLIC PANEL (14) eGFR 89 mL/mi n/1.7 3 >59 Not Available [facility] ([facility]) [address] [place], [address], 09/23/2023 13:12:04 09/22/19 24 09/23/2023 COMP. METAB OLIC PANEL (14) BUN/creatini ne ratio 22 10-24 Not Available [facility] ([facility]) [address] [place], [address], 09/23/2023 13:12:04 09/22/19 24 09/23/2023 COMP. METAB OLIC PANEL (14) sodium 138 mmol/ L 134-14 4 Not Available [facility] ([facility]) [address] [place], [address], 09/23/2023 13:12:04 09/22/19 24 09/23/2023 COMP. METAB OLIC PANEL (14) potassium - mmol/ L Test not perfo rmed. Serum was in conta ct with cells when recei davin which will make the resul t inacc urate . Not Available [facility] ([facility]) [address] [place], [address], 09/23/2023 13:12:04 09/22/19 24 09/23/2023 COMP. METAB OLIC PANEL (14) chloride 103 mmol/ L 96-106 Not Available [facility] ([facility]) [address] [place], [address], 09/23/2023 13:12:04 09/22/19 24 09/23/2023 COMP. METAB OLIC PANEL (14) carbon dioxide, total 19 mmol/ L 20-29 below low normal Not Available [facility] ([facility]) [address] [place], [address], 09/23/2023 13:12:04 09/22/19 24 09/23/2023 COMP. METAB OLIC PANEL (14) calcium 9.0 mg/dL 8.6-10 .2 Not Available [facility] ([facility]) [address] [place], [address], 09/23/2023 13:12:04 09/22/19 24 09/23/2023 COMP. METAB OLIC PANEL (14) protein, total 7.3 g/dL 6.0-8. 5 Not Available [facility] ([facility]) [address] [place], [address], 09/23/2023 13:12:04 09/22/19 24 09/23/2023 COMP. METAB OLIC PANEL (14) albumin 4.3 g/dL 3.8-4. 8 Not Available [facility] ([facility]) [address] [place], [address], 09/23/2023 13:12:04 09/22/19 24 09/23/2023 COMP. METAB OLIC PANEL (14) globulin, total 3.0 g/dL 1.5-4. 5 Not Available [facility] ([facility]) [address] [facility], [place], [address], 09/23/2023 13:12:04 09/22/19 24 09/23/2023 COMP. METAB OLIC PANEL (14) bilirubin, total 0.9 mg/dL 0.0-1. 2 Not Available [facility] ([facility]) [address] [facility], [place], [address], 09/23/2023 13:12:04 09/22/19 24 09/23/2023 COMP. METAB OLIC PANEL (14) alkaline phosphatase 86 IU/L 44-121 Not Available [facility] ([facility]) [address] [facility], [place], [address], 09/23/2023 13:12:04 09/22/19 24 09/23/2023 COMP. METAB OLIC PANEL (14) AST (SGOT) 17 IU/L 0-40 Not Available [facility] ([facility]) [address] [facility], [place], [address], 09/23/2023 13:12:04 09/22/19 24 09/23/2023 COMP. METAB OLIC PANEL (14) ALT (SGPT) 10 IU/L 0-44 Not Available [facility] ([facility]) [address] [facility], [place], [address], 09/23/2023 13:12:04 09/22/19 24 09/23/2023 CBC WITH DIFFE RENTI AL/PL ATELE T WBC 5.2 x10e3 /uL 3.4-10 .8 Not Available [facility] ([facility]) [address] [facility], [place], [address], 09/23/2023 13:12:05 09/22/19 24 09/23/2023 CBC WITH DIFFE RENTI AL/PL ATELE T RBC 4.63 x10e6 /uL 4.14-5 .80 Not Available [facility] ([facility]) [address] [facility], [place], [address], 09/23/2023 13:12:05 09/22/19 24 09/23/2023 CBC WITH DIFFE RENTI AL/PL ATELE T hemoglobin 14.4 g/dL 13.0-1 7.7 Not Available [facility] ([facility]) [address] [facility], [place], [address], 09/23/2023 13:12:05 09/22/19 24 09/23/2023 CBC WITH DIFFE RENTI AL/PL ATELE T hematocrit 44.7 % 37.5-5 1.0 Not Available [facility] ([facility]) [address] [facility], [place], [address], 09/23/2023 13:12:05 09/22/19 24 09/23/2023 CBC WITH DIFFE RENTI AL/PL ATELE T MCV 97 fL 79-97 Not Available [facility] ([facility]) [address] [place], [address], 09/23/2023 13:12:05 09/22/19 24 09/23/2023 CBC WITH DIFFE RENTI AL/PL ATELE T MCH 31.1 pg 26.6-3 3.0 Not Available [facility] ([facility]) [address] [place], [address], 09/23/2023 13:12:05 09/22/19 24 09/23/2023 CBC WITH DIFFE RENTI AL/PL ATELE T MCHC 32.2 g/dL 31.5-3 5.7 Not Available [facility] ([facility]) [address] [place], [address], 09/23/2023 13:12:05 09/22/19 24 09/23/2023 CBC WITH DIFFE RENTI AL/PL ATELE T RDW 13.6 % 11.6-1 5.4 Not Available [facility] ([facility]) [address] [facility] [address], [place], [address], 09/23/2023 13:12:05 09/22/19 24 09/23/2023 CBC WITH DIFFE RENTI AL/PL ATELE T platelets 180 x10e3 /uL 150-45 0 Not Available [facility] ([facility]) [address] [facility], [place], [address], 09/23/2023 13:12:05 09/22/19 24 09/23/2023 CBC WITH DIFFE RENTI AL/PL ATELE T neutrophils 62 % notest ab. Not Available [facility] ([facility]) [address] [facility], [place], [address], 09/23/2023 13:12:05 09/22/19 24 09/23/2023 CBC WITH DIFFE RENTI AL/PL ATELE T lymphs 25 % notest ab. Not Available [facility] ([facility]) [address] [facility], [place], [address], 09/23/2023 13:12:05 09/22/19 24 09/23/2023 CBC WITH DIFFE RENTI AL/PL ATELE T monocytes 9 % notest ab. Not Available [facility] ([facility]) [address] [facility], [place], [address], 09/23/2023 13:12:05 09/22/19 24 09/23/2023 CBC WITH DIFFE RENTI AL/PL ATELE T eos 2 % notest ab. Not Available [facility] ([facility]) [address] [facility], [place], [address], 09/23/2023 13:12:05 09/22/19 24 09/23/2023 CBC WITH DIFFE RENTI AL/PL ATELE T basos 1 % notest ab. Not Available [facility] ([facility]) [address] [facility], [place], [address], 09/23/2023 13:12:05 09/22/19 24 09/23/2023 CBC WITH DIFFE RENTI AL/PL ATELE T neutrophils (absolute) 3.3 x10e3 /uL 1.4-7. 0 Not Available [facility] ([facility]) [address] [facility], [place], [address], 09/23/2023 13:12:05 09/22/19 24 09/23/2023 CBC WITH DIFFE RENTI AL/PL ATELE T lymphs (absolute) 1.3 x10e3 /uL 0.7-3. 1 Not Available [facility] ([facility]) [address] [facility], [place], [address], 09/23/2023 13:12:05 09/22/19 24 09/23/2023 CBC WITH DIFFE RENTI AL/PL ATELE T monocytes(ab solute) 0.5 x10e3 /uL 0.1-0. 9 Not Available [facility] ([facility]) [address] [place], [address], 09/23/2023 13:12:05 09/22/19 24 09/23/2023 CBC WITH DIFFE RENTI AL/PL ATELE T eos (absolute) 0.1 x10e3 /uL 0.0-0. 4 Not Available [facility] ([facility]) [address] [place], [address], 09/23/2023 13:12:05 09/22/19 24 09/23/2023 CBC WITH DIFFE RENTI AL/PL ATELE T baso (absolute) 0.0 x10e3 /uL 0.0-0. 2 Not Available [facility] ([facility]) [address] [place], [address], 09/23/2023 13:12:05 09/22/19 24 09/23/2023 CBC WITH DIFFE RENTI AL/PL ATELE T immature granulocytes 1 % notest ab. Not Available [facility] ([facility]) [address] [facility], [place], [address], 09/23/2023 13:12:05 09/22/19 24 09/23/2023 CBC WITH DIFFE RENTI AL/PL ATELE T immature grans (abs) 0.1 x10e3 /uL 0.0-0. 1 Not Available [facility] ([facility]) [address] [facility], [place], [address], 09/23/2023 13:12:05 09/22/19 24 09/23/2023 PROST ATE-S PECIF IC AG prostate specific Ag 3.2 NG/mL 0.0-4. 0 Cheko ECLIA metho dolog y. Accor ding to the Ameri can Urolo gical Assoc iatio n, Serum PSA shoul d decre ase and remai n at undet ectab le level s after radic al prost atect caren. The AUA defin es bioch emica l recur rence as an initi al PSA value 0.2 ng/mL or great er follo wed by a subse quent confi rmato ry PSA value 0.2 ng/mL or great er. Value s obtai allison with diffe rent assay metho ds or kits canno t be used inter potter easanazy . Resul ts canno t be inter prete d as absol [place] evide nce of the prese nce or absen ce of jose philip se. Not Available [facility] ([facility]) [address] [facility] [address], [place], [address], 09/23/2023 13:12:06 09/22/19 malvin singh am No observ ation record ed. YRN In-Office Order Internal Use Only DO Not Attach Compendium DO Not Attach Compendium, Do Not Delete/merge, [id number] 09/22/2023 14:50:34 06/27/09/22/2023 malvin singh am No observ ation record ed. PALMETTO In-Office Order Internal Use Only DO Not Attach Compendium DO Not Attach Compendium, Do Not Delete/merge, [id number] 09/24/2023 13:33:28 10/20/19 24 10/20/2023 US, echoc ardio gram No observ ation record ed. [facility] [address], [place], [address], 11/11/2023 12:14:35 01/19/20 24 01/19/2024 colon oscop y scree hank (PROC ) No observ ation record ed. [facility] [id number], [place], [address], 04/05/2024 13:58:41 Result Notes None recorded. Problems Name Problem SNOMED Code Status Onset Date Resolution Date Notes Provider Name and Address Organization Details Recorded Time Essential hypertension 02666418 Active 2023 ANNITA Katz, [place] - [facility] 4 15:06:29 Problem Notes None recorded. Medical Equipment None Reported. Allergies No known drug allergies Medications Name Sig Start Date Stop Date Status Note LastModified by Organization Details LastModified Time lisinopril 20 mg-hydrochl orothiazide 12.5 mg tablet TAKE 1 TABLET BY MOUTH EVERY DAY 04/05 completed Not Available Not Available Not Available amoxicillin 500 mg tablet TAKE 1 TABLET BY MOUTH THREE TIMES A DAY FOR 7 DAYS 09/21 completed Not Available Not Available Not Available ofloxacin 0.3 % ear drops INSTILL 10 DROPS INTO AFFECTED EAR(S) BY OTIC ROUTE ONCE DAILY 09/21 completed Not Available Not Available Not Available Vitals Date Recorded Body height Body mass index (BMI) Body weight Heart rate Oxygen saturation Oxygen saturation in Arterial blood by Pulse oximetry Systolic And Diastolic Provider Name and Address Organization Details Last Updated DateTime 5 170.18 cm 31.8 kg/m2 93363.5 3 g 83 /min 98 % 98 % 128/78 mm[Hg] Vivien Maynard [place] ID - [facility] 5 14:00:26 Date Recorded Body height Body mass index (BMI) Body weight Heart rate Oxygen saturation Oxygen saturation in Arterial blood by Pulse oximetry Systolic And Diastolic Provider Name and Address Organization Details Last Updated DateTime 5 170.18 cm 28.8 kg/m2 74776.9 2 g 74 /min 96 % 96 % 110/70 mm[Hg] Vivien Maynard MA [facility] 5 14:27:15 Date Recorded Body height Systolic And Diastolic Provider Name and Address Organization Details Last Updated DateTime 10/05/2023 170.18 cm 128/84 mm[Hg] Foreign Khoury MA [facility] 10/05/2023 10:51:53 Date Recorded Body height Body mass index (BMI) Body weight Heart rate Oxygen saturation Oxygen saturation in Arterial blood by Pulse oximetry Systolic And Diastolic Provider Name and Address Organization Details Last Updated DateTime 4 170.18 cm 30.6 kg/m2 76057.8 7 g 71 /min 98 % 98 % 130/82 mm[Hg] Foreign Khoury MA [facility] 4 14:11:25 Date Recorded Body height Body mass index (BMI) Body weight Heart rate Oxygen saturation Oxygen saturation in Arterial blood by Pulse oximetry Systolic And Diastolic Provider Name and Address Organization Details Last Updated DateTime 4 170.18 cm 30.7 kg/m2 22601.3 9 g 80 /min 97 % 97 % 138/66 mm[Hg] Viri Steinberg MA [facility] 4 14:14:25 Social History Question Answer Notes LastModified by Organizat ion Details LastModified Time Tobacco Smoking Status Never Smoker Foreign Khoury MA [facility] 05/26/2023 14:22:09 Do You Have An Advance Directive? No Information n ot available 05/26/2023 Are You Blind Or Do You Have Difficulty Seeing? No Information n ot available 05/26/2023 What Is Your Level Of Caffeine Consumption? Occasional Information not available 05/26/2023 In The 14 Days Before Symptom Onset, Have You Had Close Contact With A Laboratory-confirm ed COVID-19 While That Case Was Ill? No Information n ot available 04/05/2024 In The 14 Days Before Symptom Onset, Have You Had Close Contact With A Person Who Is Under Investigation For COVID-19 While That Person Was Ill? No Information not available 04/05/2024 Have You Been To An Area Known To Be High Risk For COVID-19? No Information not available 04/05/2024 Are You Deaf Or Do You Have Serious Difficulty Hearing? No Information not available 05/26/2023 What Type Of Diet Are You Following? REGULAR Information n ot available 05/26/2023 Are There Any Guns Present In Your Home? No Information not available 05/26/2023 What Was The Date Of Your Most Recent Tobacco Screening? 08/30/2024 Information not available 08/30/2024 What Is Your Relationship Status? Information not available 05/26/2023 Do You Use Your Seat Belt Or Car Seat Routinely? Yes Information not available 05/26/2023 Do You Have Smoke And Carbon Monoxide Detectors In Your Home? Yes Information not available 05/26/2023 Do You Use Sunscreen Routinely? No Information not available 05/26/2023 Has Tobacco Cessation Counseling Been Provided? No Information not available 05/26/2023 Sex: Male Functional Status Question Answer Note LastModified by Organizat ion Details LastModified Time Do you use any illicit or recreational drugs? No Information not available 05/26/2023 Do you or have you ever used any other forms of tobacco or nicotine? No Information not available 05/26/2023 What is your level of alcohol consumption? Occasional Information not available 05/26/2023 Are you able to care for yourself? Yes Information n ot available 05/26/2023 Mental Status Question Answer Note LastModified by Organization D etails LastModified Time Do you feel stressed (tense, restless, nervous, or anxious, or unable to sleep at night)? [id number] Information not available 05/26/2023 Family History Nothing Reported. Medical History Condition Response Coronary Artery Disease N Other N High Blood Pressure N Atrial Fibrillation N Kidney or Bladder Problems N Thyroid Problems N GI Problems N Depression N COPD N Blood Clots N Skin Problems N Anemia N Heart Attack (SD) N Anxiety Disorder N Diabetes N Muscle, Joint, or Bone Problems N Seizures/Epilepsy N Acid Reflux (GERD) N Cancer N Stroke N Asthma N Allergies N High Cholesterol N Hepatitis N Liver Disease N Headaches N Heart Failure N Osteoporosis N Past Encounters Encounter ID Performer Location Encounter Start Date Encounter Closed Date Diagnosis/Indication Diagnosis SNOMED-CT Code Diagnosis ICD10 Code Diagnosis Note [id number] Jacqui Medina MD [facility] (Ad[facility]) [address] [place] [phone] 05/26/2023 13:51:46 05/26/2023 15:15:58 Gastroesophageal reflux disease without esophagitis 646203629 K21.9 [id number] [facility] [address] [place] [phone] 07/02/2023 10:02:38 07/02/2023 11:36:51 Acute right otitis media 061721687 H66.91 Otitis ext jw of right ear 5967733742 248551 H60.91 [id number] Jacqui Medina MD [facility] (Adult Med) [address] [place] [phone] 09/22/2023 13:50:12 09/22/2023 15:11:07 Essential hypertension 43552405 I10 Screening for malignant neoplasm of prostate 869254376 Z12.5 History of polyp of colon 342683764 Z86.101 [id number] Jacqui Medina MD [facility] (Adult Med) [address] [place] [phone] 10/05/2023 10:35:42 10/05/2023 12:29:16 [id number] MD [facility] (Adult Med) [address] [place] [phone] 11/03/2023 13:57:43 11/03/2023 14:39:18 Obesity 058399201 E66.8 Essential hypertension 70982314 I10 [id number] MD [facility] (Adult Med) [address] [place] [address] [phone] 12/01/2023 14:04:25 12/01/2023 15:52:13 Essential hypertension 60843321 I10 Mild aorti c valve stenosis 844390081 I35.0 [id number] Jacqui Medina MD [facility] (Adult Med) [address] [place] [address] 04/05/2024 13:44:03 04/05/2024 14:23:05 Body mass index 30+ - obesity 105651535 Z68.31 Obesity 895006195 E66.9 Essential hypertension 88041935 I10 Aortic valve stenosis 60 621495 I35.0 [id number] Jacqui Medina MD [facility] (Adult Med) [address] [place] [phone] 08/30/2024 14:12:27 08/30/2024 15:18:29 Overweight in adulthood with body mass index of 25 or more but less than 30 545101466 Z68.28 Overweight 939041973 E66 .3 Essential hypertension 35528203 I10 Palpitations 91417295 R0 0.2 Health Concerns Section Related Observation LastModified by Organization Detai ls LastModified Time None Recorded Concern Status LastModified by Organization Details LastModified Time None Recorded Advance Directives Directive N: Payers Insurance Date Sequence Insurance Name Policy Number Policy Bowman Covered Member ID Bowman Member ID Guarantor Name 10/02/2024 1 [employer] - PRIME (MEDICARE REPLACEMENT/ ADVANTAGE - HMO) [id number] Thomas Bailey [id number] Thomas Bailey Notes Date Note Type Note Provider Name and Address Organization Details Recorded Time 11/03/2023 text/html He feels good blood pressure medicine making dizzy Jacqui Medina MD Attn: [address] [place], [address], [facility] 11/28/2023 16:16:07 12/01/2023 text/html hypertension follow up off medicines doing fine pressures at home okay Jacqui Medina MD Attn: [address] [place], [address], [facility] 12/04/2023 12:37:57 04/05/2024 text/html hypertension doi ng well conservatively. Mild aortic stenosis asymptomatic Jacqui Medina MD Attn: [address] [place], [address], [facility] 04/09/2024 21:23:41 08/30/2024 text/html Palpitations resolving blood pressure seems to be doing fine Jacqui Medina MD Attn: [address] [facility], [place], [address], [facility] 09/30/2024 20:58:27
--- OUTSIDE RECORDS SUMMARY | 2024-10-10 14:50 | XMS_ITS | Continuity of Care Document ---
Author Organization [facility] Address [address] [place] [address] Phone Care Team Providers Care Senior Asset Manager Name Role Phone Ezio Nolen DO Unavailable Unavailable Advance Directives Directive Yes / No Effective Date File Name No Information Encounters Encounter Description Practice Location Reason(s) For Visit Diagnoses Date Provider Providers Copied on Encounter [facility], [address], [place], [place], [id number], [place] tel:[phone] [facility] No Information Tamanna Gannon. [address] [facility], [place], [address], [place]. tel: [phone] Family History Family Member Type Diagnosis Age At Onset No Information Payers Payer name Insurance type Covered constitution party ID Authoriza tion(s) No Information Social History Type Description Quantity Date Captured Comments Sex Male Smoking Status No Information Chief Complaint And Reason For Visit No Information Reason For Referral Reason For Referral No Information History Of Present Illness Encounter Date Complaint History Of Prese nt Illness No Information Functional Status Date Functional Assessmen t No Information Instructions Date Instruction Additional Infor mation No Information Assessments Type Assessment Date No Information Patient Care Teams Name Effective Dates (start - stop) Status Members No Information
== END 2024-10-10 14:48 | disposition home or self-care (01) ==
LOC: ANHCARD 14:48
PROVIDERS: PCP Internal Medicine; Visit Provider Internal Medicine
DX: I35.0 Nonrheumatic aortic (valve) stenosis (principal)
CPT/HCPCS: 93306